=== PATIENT | female | born 1955 | race Caucasian/White ===

== ENCOUNTER 2018-09-08 21:09 | Emergency (ER) | payer SELFPAY ==
[~2018-09-08] VITALS: Ht 162.6 cm; Wt 59.0 kg
--- NOTE | 2018-09-08 21:25 | NUR ---
PT PRESENTED TO THE ER WITH A C/O HEAD INJURY WITH HEMATOMA ON RT SIDE, BACK OF HEAD. PT HAS AN ICE PACK AND DENIES PAIN AT THIS TIME. PT'S DAUGHTER IS AT THE BEDSIDE. PT WAS WALKING TO THE CAR AND IS NOT SURE HOW SHE FELL. PT HIT HER HEAD AND DENIES KO. PT'S DAUGHTER STATED THAT SHE HAD 2 GLASSES OF WINE.
[2018-09-08] MEDS ORDERED: ACETAMINOPHEN 325 MG TABLET ONE (21:51)
--- NOTE | 2018-09-08 21:57 | NUR ---
PT LEFT FOR CT VIA [facility]. PT REFUSED TYLENOL. PT DENIES PAIN.
[2018-09-08] MEDS ORDERED: ACETAMINOPHEN 650 MG/20.3 ML UDC PO ONE (22:00)
--- NOTE | 2018-09-08 22:08 | NUR ---
PT RETURNED FROM CT.
[2018-09-08 22:39] VITALS: BP 102/77
== END 2018-09-08 22:40 | disposition home or self-care (01) ==
LOC: ER 21:12
DX: S00.03XA Contusion of scalp, initial encounter (principal); R51 Headache; F10.10 Alcohol abuse, uncomplicated; F17.200 Nicotine dependence, unspecified, uncomplicated; Y90.9 Presence of alcohol in blood, level not specified; W01.0XXA Fall on same level from slipping, tripping and stumbling without subsequent striking against object, initial encounter; Y93.89 Activity, other specified; Y92.89 Other specified places as the place of occurrence of the external cause; Y99.8 Other external cause status
CPT/HCPCS: 70450-TC; 70490-TC